=== PATIENT | male | born 1980 | race Caucasian/White ===

== ENCOUNTER → 2017-06-10 | Day surgery (SDC) | payer BC ==
[~2017-06-10] MED LIST: Acetaminophen/HYDROcodone 325-5 MG Tab PO SCH; EPINEPHrine 1 MG/ML 30 ML MDV IV ONE; HYDROmorphone 0.5 MG/0.5 ML Syringe IVPUSH PRN; HYDROmorphone 0.5 MG/0.5 ML Syringe ONE; Lactated Ringers 1,000 ML IV SCH; Lactated Ringers 1,000 ML ONE; Lidocaine 1% 4 ML ONE; Lidocaine 1%/Sod Bicarbonate in NS 8.4% 1 ML Syringe IDERM PRN; Midazolam 1 MG/ML 2 ML SDV ONE; Ondansetron 4 MG/2 ML SDV ONE; Propofol 200 MG/20 ML SDV ONE; Rocuronium 50 MG/5 ML Vial ONE; Sodium Chloride 0.9% 10 ML Syringe FLUSH PRN; ceFAZolin 1 GM Vial ONE; ePHEDrine 50 MG/ML SDV ONE; fentaNYL 100 MCG/2 ML SDV IVPUSH PRN; fentaNYL 250 MCG/5 ML SDV ONE; oxyCODONE ER 10 MG TAB.ER PO ONE
--- NOTE | 2017-06-10 07:33 | PCM.PREANE ---
Preanesthetic Assessment - Anesthesia/Transfusion/Family Hx Anesthesia History: Prior Anesthesia Without Reaction Family History of Anesthesia Reaction: Yes (Mom wakes up violent.) Transfusion History: No Prior Transfusion(s) Intubation History: Unknown - Review of Systems General: No Symptoms Pulmonary: No Symptoms, Other (Former Smoker. Quite 6 months ago. ) Cardiovascular: No Symptoms Gastrointestinal: No Symptoms Neurological: No Symptoms Other: Reports: None - Physical Assessment NPO Status Date: 06/09/17 NPO Status Time: 21:00 Pulse: 76 O2 Sat by Pulse Oximetry: 97 Respiratory Rate: 16 Blood Pressure: 124/83 Temperature: 36.9 C Weight: 110.677 kg ASA Class: 1 Mental Status: Alert & Oriented x3 Airway Class: Mallampati = 1 Dentition: Reports: Normal Dentition Thyro-Mental Finger Breadths: 3 Mouth Opening Finger Breadths: 3 ROM/Head Extension: Full Lungs: Clear to Auscultation, Normal Respiratory Effort Cardiovascular: Regular Rate, Regular Rhythm - Lab Values: Laboratory Last Values MRSA (PCR) Negative 06/01/17 15:53 - Allergies Allergies/Adverse Reactions: Allergies Allergy/AdvReac Type Severity Reaction Status Date / Time No Known Allergies Allergy Verified 04/22/17 10:05 - Acknowledgements Anesthesia Type Planned: General Anesthesia Pt an Appropriate Candidate for the Planned Anesthesia: Yes Alternatives and Risks of Anesthesia Discussed w Pt/Guardian: Yes Pt/Guardian Understands and Agrees with Anesthesia Plan: Yes PreAnesthesia Questionnaire HEENT History: Reports: Impaired Vision Cardiovascular History: Reports: None Respiratory History: Reports: None Gastrointestinal History: Reports: None Genitourinary History: Reports: None INSURANCE OFFICE MANAGER History: Reports: None Musculoskeletal History: Reports: Other (See Below) Other Musculoskeletal History: right knee arthroscopy, left hip impingment and degnerative tear of acetabular labrum Neurological History: Reports: None Psychiatric History: Reports: None Endocrine/Metabolic History: Reports: None Hematologic History: Reports: None Immunologic History: Reports: None Oncologic (Cancer) History: Reports: None Dermatologic History: Reports: None - Past Surgical History Head Surgeries/Procedures: Reports: None HEENT Surgical History: Reports: None Cardiovascular Surgical History: Reports: None Respiratory Surgical History: Reports: None GI Surgical History: Reports: None Female Surgical History: Reports: None Male Surgical History: Reports: None Endocrine Surgical History: Reports: None Neurological Surgical History: Reports: None Musculoskeletal Surgical History: Reports: None Oncologic Surgical History: Reports: None Dermatological Surgical History: Reports: None - SUBSTANCE USE Smoking Status *Q: Former Smoker Recreational Drug Use History: No - HOME MEDS Home Medications: Home Meds Acetaminophen/HYDROcodone [[place] 325-5 MG] 1 - 2 tab PO Q6H PRN #40 tablet 06/10 [Rx] Aspirin 325 mg PO BID #84 tab 06/10/17 [Rx] Cyclobenzaprine [Flexeril] 10 mg PO Q8H PRN #30 tab 06/10/17 [Rx] - CURRENT (IN HOUSE) MEDS Current Meds: Current Medications Epinephrine HCl (Adrenalin) 9 mg IV ONETIME ONE Stop: 06/10/17 09:01 Lactated Ringer's (Ringers, Lactated) 1,000 mls @ 125 mls/hr IV ASDIRECTED KYLER Stop: 06/10/17 23:00 Lidocaine/Sodium Bicarbonate (Buffered Lidocaine 1% In Ns 8.4%) 0.25 ml IDERM ONETIME PRN PRN Reason: Prior to IV Start Stop: 06/10/17 18:00 Oxycodone HCl (Oxycontin) 10 mg PO ONETIME ONE Stop: 06/10/17 07:31 Pregabalin (Lyrica) 50 mg PO DAILY KYLER Sodium Chloride (Saline Flush) 10 ml FLUSH ASDIRECTED PRN PRN Reason: Keep Vein Open Stop: 06/10/17 18:00 Discontinued Medications Acetaminophen (Ofirmev) 65 mls @ 1,000 mls/hr IV NOW ONE Stop: 06/10/17 07:17
[2017-06-10] MEDS: Pregabalin 25 MG Cap PO ONE ×2 (07:50)
[2017-06-10] MEDS: Bupivacaine 0.25% 10 ML SDV ONE ×2 (09:23→11:20)
--- NOTE | 2017-06-10 11:59 | PCM.POSTAN ---
POST ANESTHESIA ASSESSMENT - MENTAL STATUS Mental Status: Somnolent - VITAL SIGNS Pulse Rate: 88 SaO2: 93 Resp Rate: 16 Blood Pressure: 115/66 Temperature: 36.5 C - RESPIRATORY Respiratory Status: Respiratory Rate WNL, Airway Patent, O2 Saturation Stable, Supplemental Oxygen - CARDIOVASCULAR CV Status: Pulse Rate WNL, Blood Pressure Stable - GASTROINTESTINAL GI Status: No Symptoms - PAIN Pain Score: 0 - POST OP HYDRATION Hydration Status: Adequate & Stable - OBSERVATIONS Free Text/Narrative:: no anesthesia complications noted
--- NOTE | 2017-06-10 13:09 | CR ---
Left hip: Multiple fluoroscopic spot views were obtained utilizing C-arm device of the left hip. Study is a procedural film during arthroscopic surgery. Fluoroscopy time given as 113.4 seconds. Impression: 1. Findings as noted above. Diagnostic code #2
--- NOTE | 2017-06-10 15:12 | PCM48HPAN ---
Post Anesthesia Note - EVALUATION WITHIN 48HRS OF ANESTHETIC Vital Signs in Normal Range: Yes Patient Participated in Evaluation: Yes Respiratory Function Stable: Yes Airway Patent: Yes Cardiovascular Function Stable: Yes Hydration Status Stable: Yes Pain Control Satisfactory: Yes Nausea and Vomiting Control Satisfactory: Yes Mental Status Recovered: Yes Pulse Rate: 88 Resp Rate: 16 Temperature: 36.5 C Blood Pressure: 115/66 - COMMENTS/OBSERVATIONS Free Text/Narrative:: no anesthesia complications noted
--- NOTE | 2017-06-16 07:14 | PCM.OPNOTE ---
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
--- NOTE | 2017-06-16 07:52 | OR ---
DATE OF OPERATION: 06/10/2017 SURGEON: Miguel Adkins MD OPERATION PERFORMED: Left hip video arthroscopy with femoral plasty, acetabular plasty and labral repair. PREOPERATIVE DIAGNOSIS: Left hip femoral acetabular impingement with labral tear. POSTOPERATIVE DIAGNOSIS: Left hip femoral acetabular impingement with labral tear. ANESTHESIA: General endotracheal intubation with local. ANESTHESIA PROVIDER: Kan Sandoval CRNA. QLIKVIEW DEVELOPER: Rekha Meneses PA-C ESTIMATED BLOOD LOSS: 10 mL. COMPLICATIONS: None. CONDITION: Stable. DESCRIPTION OF PROCEDURE: The patient was identified in the preop holding area. Proper site was marked and identified by the surgeon. The patient was taken back to the operating theater where after adequate anesthesia, the patient's right lower extremity was placed in a traction boot but no gross traction was applied. The left lower extremity was then placed in traction boot and gross traction was applied. The left hip was then sterilely prepped and draped in the usual sterile fashion. OR time-out was performed. The patient received 2 g IV Ancef. At this time, C-arm fluoroscopy was utilized for the entry portal and 3 turns of fine traction were then applied. At this time, the joint space was found to be distracted enough. A spinal needle was then placed for creation of a lateral portal under direct C- arm fluoroscopy. It was found to be in good position. Incision was made and the trocar was introduced. At this time, under direct visualization in the joint with use of a spinal needle, an anterolateral portal was then created and was found to be in adequate position. At this time, cursory examination was performed. The patient had grade 2 chondromalacia noted in the acetabulum and I was noted to have a bucket-handle tear at the anterior portion of the labrum. There was no significant femoral chondromalacia noted at this time. At this time, a capsulotomy was then performed from medial to lateral to connect the 2 portals. Once this was completed, resection was done of some of the synovium and traction stitches were applied near the superior acetabulum. At this time, the patient was noted to have significant calcified or bony pieces that were anteriorly near the bucket-handle tear. At this time, these were resected out using a 5.5 full-radius bur under direct visual C-arm fluoroscopy. At this time also I did resect down a large portion of the anterior acetabulum with significant anterior acetabular overhang under direct visualization with C- arm fluoroscopy. An accessory Dahla portal was than created for passge of the anchors starting medially. Once this was completed starting medially, I was able to place 4 [place] knotless acetabular labral anchors to fixate the previous bucket- handle tear of the anterior portion of the anterior labrum. This was then securely fixated all the way from anterior to anterolateral with no signs of delamination noted. Once this was completed, gross and fine traction were removed and a T-capsulotomy was performed down the femoral neck. Under direct visualization, the patient was noted to have on C-arm fluoroscopy a significant CAM lesion and a 5.5 full-radius bur was then utilized all the way from lateral to anterior starting at the chondral junction of the neck down distally on the neck. Under direct C-arm visualization, we were able to remove the CAM lesion at this time. At this time, excess saline was drained from the hip. A 3-0 nylon simple suture was used for closure of the skin. The patient had a sterile soft dressing applied. Marcaine 0.25% was then injected around the lateral femoral cutaneous nerve near the ASIS and then was sent to the PACU in stable condition. BALJIT /[id number] SHAMEKA
== END | disposition home or self-care (01) ==
LOC: JD.SDS 06:32
PROVIDERS: ATTEND Orthopaedic Surgery
DX: M25.852 Other specified joint disorders, left hip (principal); M16.12 Unilateral primary osteoarthritis, left hip; M94.252 Chondromalacia, left hip; Z87.891 Personal history of nicotine dependence; Z98.890 Other specified postprocedural states; Z79.82 Long term (current) use of aspirin
CPT/HCPCS: 29914; 29915; 76000; 87641; A9270; C1713; J0171; J0690; J1170; J2250; J2405; J3010; J7120; 01202; J2704

== ENCOUNTER 2017-08-26 05:58 | Day surgery (SDC) | payer BC ==
[~2017-08-26 05:58] MED LIST changes: -Acetaminophen/HYDROcodone 325-5 MG Tab PO SCH; -EPINEPHrine 1 MG/ML 30 ML MDV IV ONE; -HYDROmorphone 0.5 MG/0.5 ML Syringe IVPUSH PRN; -HYDROmorphone 0.5 MG/0.5 ML Syringe ONE; -Lactated Ringers 1,000 ML IV SCH; -Lactated Ringers 1,000 ML ONE; -Lidocaine 1% 4 ML ONE; -Lidocaine 1%/Sod Bicarbonate in NS 8.4% 1 ML Syringe IDERM PRN; -Midazolam 1 MG/ML 2 ML SDV ONE; -Ondansetron 4 MG/2 ML SDV ONE; -Propofol 200 MG/20 ML SDV ONE; -Rocuronium 50 MG/5 ML Vial ONE; -Sodium Chloride 0.9% 10 ML Syringe FLUSH PRN; -ceFAZolin 1 GM Vial ONE; -ePHEDrine 50 MG/ML SDV ONE; -fentaNYL 100 MCG/2 ML SDV IVPUSH PRN; -fentaNYL 250 MCG/5 ML SDV ONE; -oxyCODONE ER 10 MG TAB.ER PO ONE; +oxyCODONE ER 10 MG TAB.ER PO SCH
[2017-08-26] MEDS ORDERED: oxyCODONE ER 10 MG TAB.ER PO ONE (06:00)
[2017-08-26] MEDS ORDERED: Pregabalin 25 MG Cap PO SCH ×2 (06:00→07:00)
[2017-08-26] MEDS ORDERED: Acetaminophen 325 MG Tab PO SCH ×2 (06:00→07:00)
[2017-08-26] MEDS ORDERED: EPINEPHrine 1:10,000 1 MG/10 ML Syringe ONE (06:14)
[2017-08-26] MEDS ORDERED: Propofol 200 MG/20 ML SDV ONE (06:29)
[2017-08-26] MEDS ORDERED: Midazolam 1 MG/ML 2 ML SDV ONE (06:29)
[2017-08-26] MEDS ORDERED: fentaNYL 250 MCG/5 ML SDV ONE ×2 (06:29→09:33)
[2017-08-26] MEDS ORDERED: Ondansetron 4 MG/2 ML SDV ONE (06:32)
[2017-08-26] MEDS ORDERED: Dexamethasone 4 MG/ML SDV ONE (06:32)
[2017-08-26] MEDS ORDERED: Lidocaine 1% 4 ML ONE (06:32)
[2017-08-26] MEDS ORDERED: Rocuronium 50 MG/5 ML Vial ONE (06:32)
--- NOTE | 2017-08-26 06:57 | PCM.PREANE ---
Preanesthetic Assessment - Procedure Proposed Procedure: Right hip video arthroscopy - Anesthesia/Transfusion/Family Hx Anesthesia History: Prior Anesthesia Without Reaction Family History of Anesthesia Reaction: No Transfusion History: No Prior Transfusion(s) Intubation History: Unknown - Review of Systems General: No Symptoms Pulmonary: No Symptoms Cardiovascular: No Symptoms Gastrointestinal: No Symptoms Neurological: No Symptoms Other: Reports: None - Physical Assessment NPO Status Date: 08/25/17 NPO Status Time: 22:00 O2 Sat by Pulse Oximetry: 97 Respiratory Rate: 16 Temperature: 36.7 C Vital Signs: Last Vital Signs Temp 36.7 C 08/26/17 06:44 Pulse 66 08/26/17 06:10 Resp 16 08/26/17 06:10 BP 118/72 08/26/17 06:10 Pulse Ox 97 08/26/17 06:10 Height: 1.91 m Weight: 112.945 kg ASA Class: 1 Mental Status: Alert & Oriented x3 Airway Class: Mallampati = 1 Dentition: Reports: Missing Tooth/Teeth (bottom left molar ) Thyro-Mental Finger Breadths: 3 Mouth Opening Finger Breadths: 3 ROM/Head Extension: Full Lungs: Clear to Auscultation, Normal Respiratory Effort Cardiovascular: Regular Rate, Regular Rhythm - Lab Values: Laboratory Last Values MRSA (PCR) Negative 08/04/17 10:44 - Allergies Allergies/Adverse Reactions: Allergies Allergy/AdvReac Type Severity Reaction Status Date / Time No Known Allergies Allergy Verified 08/25/17 08:01 - Blood Blood Available: No Product(s) Available: None - Anesthesia Plan Pre-Op Medication Ordered: None - Acknowledgements Anesthesia Type Planned: General Anesthesia Pt an Appropriate Candidate for the Planned Anesthesia: Yes Alternatives and Risks of Anesthesia Discussed w Pt/Guardian: Yes Pt/Guardian Understands and Agrees with Anesthesia Plan: Yes PreAnesthesia Questionnaire HEENT History: Reports: Impaired Vision Cardiovascular History: Reports: None Respiratory History: Reports: None Gastrointestinal History: Reports: None Genitourinary History: Reports: None PRIVATE CLIENT ADVISOR History: Musculoskeletal History: Reports: Other (See Below) Other Musculoskeletal History: right knee arthroscopy, left hip impingment and degnerative tear of acetabular labrum Neurological History: Reports: None Psychiatric History: Reports: None Endocrine/Metabolic History: Reports: None Hematologic History: Reports: None Immunologic History: Reports: None Oncologic (Cancer) History: Reports: None Dermatologic History: Reports: None - Infectious Disease History Infectious Disease History: Reports: None - Past Surgical History Head Surgeries/Procedures: Reports: None HEENT Surgical History: Reports: None Cardiovascular Surgical History: Reports: None Respiratory Surgical History: Reports: None GI Surgical History: Reports: None Female Surgical History: Male Surgical History: Reports: None Endocrine Surgical History: Reports: None Neurological Surgical History: Reports: None Musculoskeletal Surgical History: Reports: None, Knee Replacement, Other (See Below) Other Musculoskeletal Surgeries/Procedures:: Left hip video arthroscopy Oncologic Surgical History: Reports: None Dermatological Surgical History: Reports: None - SUBSTANCE USE Smoking Status *Q: Former Smoker Second Hand Smoke Exposure: No Recreational Drug Use History: No - HOME MEDS Home Medications: Home Meds Ibuprofen 200 - 600 mg PO DAILY PRN 08/25/17 [History] Indomethacin 50 mg PO BID 08/25/17 [History] Acetaminophen/HYDROcodone [[place] 325-5 MG] 1 - 2 tab PO Q6H PRN #40 tablet 08/26 [Rx] Aspirin 325 mg PO BID #84 tab 08/26/17 [Rx] Cyclobenzaprine [Flexeril] 10 mg PO BEDTIME PRN #30 tab 08/26/17 [Rx] Indomethacin [Indomethacin ER] 75 mg PO DAILY #30 capsule.er 08/26/17 [Rx] - CURRENT (IN HOUSE) MEDS Current Meds: Current Medications Acetaminophen (Tylenol) 975 mg PO ONETIME KYLER Stop: 08/26/17 12:00 Last Admin: 08/26/17 06:44 Dose: 975 mg Lactated Ringer's (Ringers, Lactated) 1,000 mls @ 125 mls/hr IV ASDIRECTED KYLER Last Admin: 08/26/17 06:20 Dose: 125 mls/hr Lidocaine/Sodium Bicarbonate (Buffered Lidocaine 1% In Ns 8.4%) 0.25 ml IDERM ONETIME PRN PRN Reason: Prior to IV Start Last Admin: 08/26/17 06:20 Dose: 0.25 ml Pregabalin (Lyrica) 50 mg PO ONETIME KYLER Stop: 08/26/17 18:00 Last Admin: 08/26/17 06:43 Dose: 50 mg Sodium Chloride (Saline Flush) 10 ml FLUSH ASDIRECTED PRN PRN Reason: Keep Vein Open Discontinued Medications Acetaminophen (Tylenol) 975 mg PO ONETIME KYLER Stop: 08/26/17 12:00 Dexamethasone (Dexamethasone) Confirm Administered Dose 4 mg .ROUTE .STK-MED ONE Stop: 08/26/17 06:33 Epinephrine HCl (Epinephrine 1:10,000) 3 mg .XX ONETIME ONE Stop: 08/26/17 06:15 Fentanyl (Sublimaze) Confirm Administered Dose 250 mcg .ROUTE .STK-MED ONE Stop: 08/26/17 06:30 Lidocaine HCl (Xylocaine-Mpf 1%) Confirm Administered Dose 4 mls @ as directed .ROUTE .STK-MED ONE Stop: 08/26/17 06:33 Midazolam HCl (Versed 1 Mg/Ml) Confirm Administered Dose 2 mg .ROUTE .STK-MED ONE Stop: 08/26/17 06:30 Ondansetron HCl (Zofran) Confirm Administered Dose 4 mg .ROUTE .STK-MED ONE Stop: 08/26/17 06:33 Oxycodone HCl (Oxycontin) 10 mg PO ONETIME KYLER Stop: 08/25/17 16:00 Oxycodone HCl (Oxycontin) 10 mg PO ONETIME ONE Stop: 08/26/17 06:01 Last Admin: 08/26/17 06:42 Dose: 10 mg Pregabalin (Lyrica) 50 mg PO ONETIME KYLER Stop: 08/26/17 18:00 Propofol (Diprivan 20 Ml) Confirm Administered Dose 200 mg .ROUTE .STK-MED ONE Stop: 08/26/17 06:30 Rocuronium [place] (Zemuron) Confirm Administered Dose 50 mg .ROUTE .STK-MED ONE Stop: 08/26/17 06:33
[2017-08-26] MEDS ORDERED: Sodium Chloride 0.9% 10 ML Syringe FLUSH PRN (07:00)
[2017-08-26] MEDS ORDERED: Lactated Ringers 1,000 ML IV SCH (07:00)
[2017-08-26] MEDS ORDERED: Lidocaine 1%/Sod Bicarbonate in NS 8.4% 1 ML Syringe IDERM PRN (07:00)
[2017-08-26] MEDS ORDERED: EPINEPHrine 1 MG/ML 30 ML MDV ONE ×2 (07:15→07:45)
[2017-08-26] MEDS ORDERED: ceFAZolin 1 GM Vial ONE (07:56)
[2017-08-26] MEDS: Bupivacaine 0.25% 30 ML SDV ONE ×2 (08:16→10:40)
[2017-08-26] MEDS ORDERED: HYDROmorphone 0.5 MG/0.5 ML Syringe ONE ×3 (08:16→10:28)
[2017-08-26] MEDS ORDERED: Lactated Ringers 1,000 ML ONE (08:42)
[2017-08-26] MEDS ORDERED: fentaNYL 100 MCG/2 ML SDV IVPUSH PRN ×2 (09:12→11:29)
[2017-08-26] MEDS ORDERED: Ondansetron 4 MG/2 ML SDV IVPUSH PRN (09:12)
[2017-08-26] MEDS ORDERED: Meperidine PF 50 MG/ML Syringe IVPUSH PRN (09:12)
[2017-08-26] MEDS ORDERED: diphenhydrAMINE 50 MG/ML SDV IVPUSH PRN (09:12)
[2017-08-26] MEDS ORDERED: HYDROmorphone 0.5 MG/0.5 ML Syringe IVPUSH ONE ×2 (09:12→11:30)
--- NOTE | 2017-08-26 11:17 | PCM.POSTAN ---
POST ANESTHESIA ASSESSMENT - MENTAL STATUS Mental Status: Alert, Oriented - VITAL SIGNS Pulse Rate: 98 SaO2: 94 Resp Rate: 12 Blood Pressure: 144/91 Temperature: 36.9 C - RESPIRATORY Respiratory Status: Respiratory Rate WNL, Airway Patent, O2 Saturation Stable, Supplemental Oxygen - CARDIOVASCULAR CV Status: Pulse Rate WNL, Blood Pressure Stable - GASTROINTESTINAL GI Status: No Symptoms - PAIN Pain Score: 4 (fentanyl given ) - POST OP HYDRATION Hydration Status: Adequate & Stable
[2017-08-26] MEDS ORDERED: Acetaminophen/HYDROcodone 325-5 MG Tab PO SCH (12:30)
--- NOTE | 2017-08-26 13:16 | PCM48HPAN ---
Post Anesthesia Note - EVALUATION WITHIN 48HRS OF ANESTHETIC Vital Signs in Normal Range: Yes Patient Participated in Evaluation: Yes Respiratory Function Stable: Yes Airway Patent: Yes Cardiovascular Function Stable: Yes Hydration Status Stable: Yes Pain Control Satisfactory: Yes Nausea and Vomiting Control Satisfactory: Yes Mental Status Recovered: Yes
--- NOTE | 2017-08-26 15:10 | CR ---
Right hip: Multiple fluoroscopic spot views were obtained during right hip arthroscopy utilizing C-arm device. Fluoroscopy time not given at time of dictation. Arthroscopy device and probe are in place. No additional comments can be made. Impression: 1. Operative study. Diagnostic code #1 I agree with preliminary report from renee, finalized at 08/26/17, 1:32 PM Central Time
--- NOTE | 2017-08-30 07:07 | PCM.OPNOTE ---
- General Post-Op/Procedure Note Date of Surgery/Procedure: 08/26/17 Operative Procedure(s): right hip video arthroscopy with acetabuloplasty, femoroplasty and labral repair Pre Op Diagnosis: right hip femoroacetabular impingement with labral tear Post-Op Diagnosis: Same Anesthesia Technique: General ET Tube, Local Primary Surgeon: Miguel Adkins Anesthesia Provider: Alvaro Del Cid Inspector General: Rekha Meneses in mLs: 5 Complications: None Condition: Good
--- NOTE | 2017-09-01 11:02 | OR ---
DATE OF OPERATION: 08/26/2017 SURGEON: Miguel Adkins MD OPERATIVE PROCEDURE: Right hip video arthroscopy with acetabular femoroplasty and labral repair. PREOPERATIVE DIAGNOSIS: Right hip femoroacetabular impingement, labral tear. POSTOPERATIVE DIAGNOSIS: Right hip femoroacetabular impingement, labral tear. ANESTHESIA TECHNIQUE: General endotracheal intubation with local. ANESTHESIA PROVIDER: Alvaro Del Cid. PATHOLOGY LABORATORY AIDES TEACHER: Rekha Meneses PA-C. ESTIMATED BLOOD LOSS: Less than 5 mL. COMPLICATIONS: None. CONDITION: Stable. DESCRIPTION OF PROCEDURE: The patient was identified in the preop holding area and proper site was marked and identified by the surgeon. The patient was taken back to the operating theater, where after adequate anesthesia, the patient was placed in the traction table. Patient had just gross traction applied in the left lower extremity, no fine traction in the right lower extremity, was placed in usual positioning and gross traction was applied. At this time, right hip was then sterilely prepped and draped in the usual sterile fashion. OR time-out was performed. 2 g IV Ancef was given. At this time, using C-arm fluoroscopy, the entry point was identified and 3 turns of traction was applied. Joint distraction was noted to be adequate at this time. With the use of spinal needle, a lateral portal was identified and was created. The trocar was then used over the top, and then, the viewing portal was placed. At this time, it was found to be in adequate position. Using a spinal needle again, anterolateral portal was then created. The incision was made and another portal was placed. At this time, cursory examination showed significant fraying of the anterior and anterolateral portion of the labrum with significant labral tear off the chondral junction. There was noted to be chondral junction damage as well near the labrum with fraying. At this time, a capsulotomy was performed from medial to lateral and traction stitches were applied. At this time, resection of the synovium over the acetabulum was done and peel back of the labrum was done until the acetabulum was exposed all the way from the anterior portion all the way to the lateral portion. At this time, it was noted that the patient had significant overhang including os noted on the very anterior aspect with a free-floating osseous piece. Using the ethan alberto, I was able to alberto back the acetabulum roughly 4- 5 mm which was found to have good adequate resection for an acetabuloplasty on C- arm fluoroscopy as this was being accomplished. Once this was completely done, we started medially with the repair and placed [place] knotless labral anchors starting medially and brought 4 of them total out all the way to the laterally. It was found to have good adequate watertight repair of the labrum. At this time, there was good bounce back. At this time, the cartilage fraying was cauterized back to a good clean edge. The labral repair was found to be adequate. At this time, traction was taken off the lower extremity and a T capsulotomy was performed. Traction stitches were applied using a ethan alberto. The CAM lesion was resected off the femur back to a good rounded edge under direct visualization and C-arm fluoroscopy. At this time, the femoroplasty was completed. The capsule was found to be in no need of repair as it was a very small T capsulotomy. Excess saline was drained from the hip. 3-0 nylon simple sutures were used for closure of the skin. 0.25% Marcaine was injected around the ASIS and the patient had a sterile soft dressing applied. The patient tolerated the procedure well and sent to PACU in stable condition. OPERATION PERFORMED: ANESTHESIA: BALJIT /[id number]
== END 2017-08-26 13:20 | disposition home or self-care (01) ==
LOC: JD.SDS 05:58
PROVIDERS: ATTEND Orthopaedic Surgery
DX: S73.191A Other sprain of right hip, initial encounter (principal); M25.851 Other specified joint disorders, right hip; Z87.891 Personal history of nicotine dependence; Z79.899 Other long term (current) drug therapy; X58.XXXA Exposure to other specified factors, initial encounter
CPT/HCPCS: 29914; 29916; 76000; 87641; A9270; C1713; C1776; J0171; J0690; J1100; J1170; J2001; J2250; J2405; J3010; J3490; J7120; 01400; J2704